=== PATIENT | male | born 1995 | race Caucasian/White ===

== ENCOUNTER 2017-01-24 16:05 | Emergency (ER) | payer SELFPAY ==
[~2017-01-24] VITALS: Ht 177.8 cm; Wt 66.0 kg
[~2017-01-24 16:05] MED LIST: BACT800T5 PO; CEPH500T PO
[2017-01-24 16:07] VITALS: BP 130/63; PULSE 59; RESP 16; TEMP 97.4; O2SAT 97
--- NOTE | 2017-01-24 16:22 | PD ---
HPI Chief Complaint: Cold / Flu Symptoms Time Seen by Provider: 16:19 Travel History International Travel<30 days: No Contact w/Intl Traveler<30days: No Traveled to known affect area: No History of Present Illness HPI 21-year-old male that presents to the ED for evaluation of possible flu. Per patient his been in contact with someone who had the flu on Thursday. Per patient he himself got the flu shot this year old history of having cough and runny nose today and he wanted to make sure he did not get the flu as per patient his mother has significant illness in she herself is concerned that he might have the flu and wants to make sure. Patient denies any body aches. No fevers chills or sweats. He isn't taking anything for this. Denies any recent travel. No chest pain or shortness of breath. No abdominal pain. No nausea or vomiting. No other symptoms other than congestion and runny nose. PFSH Past Medical History Diminished Hearing: No Immunizations Current: Yes (ALL UTD ) Social History Alcohol Use: Yes Tobacco Use: No Substance Use: Yes (MARIJUANA) Allergies-Medications (Allergen,Severity, Reaction): Coded Allergies: No Known Allergies (Verified , 05/03/16) Reported Meds & Prescriptions Reported Meds & Active Scripts Active Review of Systems Except as stated in HPI: all other systems reviewed are Neg Physical Exam Narrative GENERAL: Well-nourished, well-developed patient in no apparent distress. SKIN: Warm and dry. HEAD: Atraumatic. Normocephalic. EYES: Pupils equal and round reactive to light and accommodation. No scleral icterus. No injection or drainage. ENT: No nasal bleeding or discharge. Mucous membranes pink and moist. TMs are clear with no sign of infection or perforation. No mastoid tenderness. Ear canals are intact bilaterally. No lymphadenopathy. Nostril mucosa is red and moist with clear mucus noted. No sinus tenderness to palpation noted. Tonsils are not enlarged or swollen. No ulvua Deviation. Tongue is midline. NECK: Trachea midline. No JVD. No meningeal signs noted CARDIOVASCULAR: Regular rate and rhythm. RESPIRATORY: No accessory muscle use. Clear to auscultation. Breath sounds equal bilaterally. GASTROINTESTINAL: Abdomen soft, non-tender, nondistended. Hepatic and splenic margins not palpable. MUSCULOSKELETAL: Extremities without clubbing, cyanosis, or edema. No obvious deformities. NEUROLOGICAL: Awake and alert. No obvious cranial nerve deficits. Motor grossly within normal limits. Five out of 5 muscle strength in the arms and legs. Normal speech. PSYCHIATRIC: Appropriate mood and affect; insight and judgment normal. Data Data Last Documented VS Vital Signs Date Time Temp Pulse Resp B/P Pulse Ox O2 Delivery O2 Flow Rate FiO2 01/24/17 16:07 97.4 59 16 130/63 97 Orders Influenzae A/B Antigen (01/24/17 16:10) MDM Medical Decision Making Medical Screen Exam Complete: Yes Emergency Medical Condition: Yes Medical Record Reviewed: Yes Interpretation(s) influenza negative Differential Diagnosis Upper respiratory infection versus sinusitis versus influenza versus viral illness Narrative Course 21-year-old male that presents to the ED for evaluation of cold-like symptoms. Patient was properly examined and was found to have signs and symptoms consistent what appears to be likely viral illness. Patient did have recent interaction with positive flu individual. This time and do recommend checking for the flu as patient will likely or benefit more from Tamiflu if he is positive. At this time patient is in agreement with plan. Flu test showed negative. I recommend taking OTC meds as needed. Follow with PCP. See ED worsening symptoms. Diagnosis Primary Impression: URI (upper respiratory infection) Qualified Code: J06.9 - Viral upper respiratory tract infection Patient Instructions: General Instructions Additional Instructions: Motrin and Tylenol for pain and fever. You can use [id number] antihistamine as well as well as Mucinex as needed for runny nose and congestion. Cough drops for cough as needed. Drink plenty of fluids. Follow-up with PCP. See ED for worsening symptoms. Med/Other Pt SpecificInfo: No Meds Exist/No RX given Disposition: 01 DISCHARGE HOME Condition: Stable Harjinder Paz Jan 24, 2017 16:22
== END 2017-01-24 16:41 | disposition home or self-care (01) ==
LOC: PHEFT 16:05
DX: J06.9 Acute upper respiratory infection, unspecified (principal)
CPT/HCPCS: 87804; 99283

== ENCOUNTER 2017-06-09 10:19 | Emergency (ER) | payer SELFPAY ==
[~2017-06-09] VITALS: Ht 172.7 cm; Wt 72.5 kg
[2017-06-09 10:20] VITALS: BP 126/67; PULSE 71; RESP 16; TEMP 98.5; O2SAT 99
--- NOTE | 2017-06-09 10:36 | PD ---
HPI Chief Complaint: Cold / Flu Symptoms Time Seen by Provider: 10:36 Travel History International Travel<30 days: No Contact w/Intl Traveler<30days: No Traveled to known affect area: No History of Present Illness HPI 22-year-old male presents to the emergency Department with complaint of sore throat, body aches, nausea that he woke up with this morning. Denies fever, vomiting. Denies lump in throat, difficulty swallowing, and usual drooling. Denies nasal congestion, ear pain. He lives with his mom who has autoimmune disease so they are very cautious and concerned about bringing him illnesses. He has not taken any medications or tried any treatments to alleviate his symptoms. Symptoms are mild in severity. Has no other medical complaints. No known allergies. No other modifying factors or associated signs and symptoms. PFSH Past Medical History Diminished Hearing: No Immunizations Current: Yes (ALL UTD ) Social History Alcohol Use: Yes Tobacco Use: No Substance Use: Yes (MARIJUANA) Allergies-Medications (Allergen,Severity, Reaction): Coded Allergies: No Known Allergies (Verified , 06/09/17) Reported Meds & Prescriptions Reported Meds & Active Scripts Active No Active Prescriptions or Reported Medications Review of Systems Except as stated in HPI: all other systems reviewed are Neg Physical Exam Narrative GENERAL: Well-nourished, well-developed male patient, in no acute distress; afebrile, nontoxic-appearing SKIN: Warm and dry. No rash. HEAD: Atraumatic. Normocephalic. EYES: Pupils equal and round. No scleral icterus. No injection or drainage. ENT: Mucosa pink and moist. Oropharynx with erythema; without edema or exudates. No uvular edema. No uvular, palatal, or tonsillar deviation. Airway patent. EARS: Bilateral pinnae and external canals appear within normal limits. Bilateral tympanic membranes without erythema, dullness or perforation. NECK: Trachea midline. No lymphadenopathy. CARDIOVASCULAR: Regular rate and rhythm. No murmur appreciated. RESPIRATORY: No accessory muscle use. Clear to auscultation. Breath sounds equal bilaterally. No retractions or tachypnea. GASTROINTESTINAL: Abdomen soft, non-tender, nondistended. Hepatic and splenic margins not palpable. Bowel sounds are active 4 quadrants. MUSCULOSKELETAL: No obvious deformities. No clubbing. No cyanosis. No edema. NEUROLOGICAL: Awake and alert. Oriented 3. No obvious cranial nerve deficits. Motor grossly within normal limits. Normal speech. Moves all extremities. 5/5 strength to all extremities. PSYCHIATRIC: Appropriate mood and affect; insight and judgment normal. Data Data Last Documented VS Vital Signs Date Time Temp Pulse Resp B/P (MAP) Pulse Ox O2 Delivery O2 Flow Rate FiO2 06/09/17 11:33 06/09/17 10:20 98.5 71 16 99 Room Air Orders Orders Group A Rapid Strep Screen (06/09/17 10:36) Ibuprofen (Motrin) (06/09/17 10:45) Influenzae A/B Antigen (06/09/17 10:36) Strep Culture (Group A) (06/09/17 10:45) MDM Medical Decision Making Medical Screen Exam Complete: Yes Emergency Medical Condition: Yes Medical Record Reviewed: Yes Differential Diagnosis Viral illness, influenza, pharyngitis Narrative Course 22-year-old male with cold/flu symptoms that onset today. He lives with his mom who has autoimmune disorder and they are very cautious when somebody has onset of symptoms. He is afebrile and nontoxic-appearing. He denies fever, vomiting. Ibuprofen administered in the ER. Rapid strep and influenza ordered. 1127: Influenza and rapid strep negative. Discussed viral illness and symptomatic management. Instructed patient to follow up with primary care provider. Patient verbalizes understanding and agreement with treatment plan. Patient is medically cleared and stable for discharge. Discussed reasons to return to the emergency department. Patient agrees with treatment plan. The patients vital signs are stable and the patient is stable for outpatient follow- up and treatment. Patient discharged home, stable and in no acute distress. Diagnosis Primary Impression: Viral illness Referrals: [facility] Primary Care Physician Patient Instructions: Cold Symptoms (ED), General Instructions Departure Forms: School Release, Return to School Date: Jun 10, 2017 Tests/Procedures, Work Release Enter return to work date: Jun 10, 2017 Additional Instructions: Ibuprofen or Tylenol as directed and as needed for symptom management [id number] cold/flu medications as directed and as needed for symptom management Get plenty of sleep/rest Drink plenty of fluids to prevent dehydration; such as Gatorade, Powerade, Pedialyte [place] diet to encourage nutrition such as crackers, fruit, applesauce, toast, soup etc. Use an air humidifier/turn off ceiling fans Follow-up with your primary care provider Return immediately to the emergency department with worsening of symptoms Med/Other Pt SpecificInfo: No Meds Exist/No RX given Scripts No Active Prescriptions or Reported Meds Disposition: 01 DISCHARGE HOME Condition: Stable Tatiana Pollard Jun 09, 2017 10:36
[2017-06-09] MEDS ORDERED: IBUPROFEN 800 MG TAB PO ONE (10:45)
== END 2017-06-09 11:40 | disposition home or self-care (01) ==
LOC: NEPK 10:19
DX: B34.9 Viral infection, unspecified (principal); F10.10 Alcohol abuse, uncomplicated; F12.10 Cannabis abuse, uncomplicated
CPT/HCPCS: 87081; 87804; 87880; 99283

== ENCOUNTER 2017-08-19 11:17 | Emergency (ER) | payer SELFPAY ==
[~2017-08-19] VITALS: Ht 175.3 cm; Wt 72.0 kg
[2017-08-19 11:25] VITALS: BP 128/65; PULSE 72; RESP 16; TEMP 97.6; O2SAT 97
[2017-08-19] MEDS ORDERED: BACT800T5 PO (11:44)
--- NOTE | 2017-08-19 11:45 | PD ---
HPI Chief Complaint: Skin Problem Time Seen by Provider: 11:40 Travel History International Travel<30 days: No Contact w/Intl Traveler<30days: No Traveled to known affect area: No History of Present Illness HPI 22-year-old male complains of rash to the buttock and lower extremity. Patient states the rash started a week ago. Patient states that the rash occasionally associated with pain. Patient has been putting topical steroid on the rash with mild relief. Patient states that he sweats a lot. Patient also has been active outdoor. Patient denies any fever chills. Patient states that he has history MRSA infection in the past. PFSH Past Medical History Diminished Hearing: No Immunizations Current: Yes (ALL UTD ) Social History Alcohol Use: Yes Tobacco Use: No Substance Use: Yes (MARIJUANA) Allergies-Medications (Allergen,Severity, Reaction): Coded Allergies: No Known Allergies (Verified Adverse Reaction, Unknown, 08/19/17) Reported Meds & Prescriptions Reported Meds & Active Scripts Active No Active Prescriptions or Reported Medications Review of Systems General / Constitutional: No: Fever Eyes: No: Visual changes HENT: No: Headaches Cardiovascular: No: Chest Pain or Discomfort Respiratory: No: Shortness of Breath Gastrointestinal: No: Abdominal Pain Genitourinary: No: Dysuria Musculoskeletal: No: Pain Skin: Positive Rash Neurologic: No: Weakness Psychiatric: No: Depression Endocrine: No: Polydipsia Hematologic/Lymphatic: No: Easy Bruising Physical Exam Narrative GENERAL: Well-nourished, well-developed patient. SKIN: Focused skin assessment warm/dry. Patient has mild fine papular rash on the buttock area and the legs. No tenderness on palpation. No pus noted. HEAD: Normocephalic. EYES: No scleral icterus. No injection or drainage. NECK: Supple, trachea midline. No JVD or lymphadenopathy. CARDIOVASCULAR: Regular rate and rhythm without murmurs, gallops, or rubs. RESPIRATORY: Breath sounds equal bilaterally. No accessory muscle use. GASTROINTESTINAL: Abdomen soft, non-tender, nondistended. MUSCULOSKELETAL: No cyanosis, or edema. BACK: Nontender without obvious deformity. No CVA tenderness. Data Data Last Documented VS Vital Signs Date Time Temp Pulse Resp B/P (MAP) Pulse Ox O2 Delivery O2 Flow Rate FiO2 08/19/17 11:25 97.6 72 16 128/65 (86) 97 MDM Medical Decision Making Medical Screen Exam Complete: Yes Emergency Medical Condition: Yes Differential Diagnosis Differential diagnosis including heat rash, contact dermatitis, folliculitis. Narrative Course 22-year-old male with rash on the buttock and lower extremity. History of excessive sweating. Diagnosis Primary Impression: Heat rash Patient Instructions: General Instructions Additional Instructions: Take Bactrim DS as directed if the rash becomes infected. Follow-up with local physician. Advised cotton clothes and loose fitting clothes Med/Other Pt SpecificInfo: Prescription(s) given Scripts Sulfamethoxazole-Trimethoprim (Bactrim DS) 800-160 Mg Tab 1 TAB PO BID for Infection, #20 TAB 0 Refills Prov: Amando Ledezma MD 08/19/17 Disposition: 01 DISCHARGE HOME Condition: Stable Amando Ledezma MD Aug 19, 2017 11:44
== END 2017-08-19 12:04 | disposition home or self-care (01) ==
LOC: PHEFT 11:17
DX: L74.0 Miliaria rubra (principal)
CPT/HCPCS: 99283

== ENCOUNTER 2018-01-19 15:28 | Emergency (ER) | payer SELFPAY ==
[~2018-01-19 15:28] MED LIST changes: -CEPH500T PO
[2018-01-19 15:40] VITALS: BP 132/60; PULSE 73; RESP 18; TEMP 97.7; O2SAT 98
[2018-01-19] MEDS ORDERED: TETANUS/DIPHTHERIA TOXOID ADULT 0.5 ML VIAL IM ONE (16:00)
--- NOTE | 2018-01-19 16:23 | RADRPT ---
EXAM DATE/TIME: 01/19/2018 15:59 [facility] COMPARISON: ANKLE LEFT COMPLETE ([id number]), April 04, 2016, 11:55. INDICATIONS : Left foot pain. Patient stepped on monica nail. Evaluate for foregin body. MEDICAL HISTORY : None. SURGICAL HISTORY : None. ENCOUNTER: Initial ACUITY: 1 day PAIN SCORE: 6/10 LOCATION: Left foot. FINDINGS: The examination demonstrates a small ossific density which appears to be a small avulsion off the bas e of the second proximal phalanx. The puncture site is marked on the plantar surface of the foot. I d o not see a foreign body beneath this. The remainder the osseous structures are intact. CONCLUSION: 1. No definite metallic foreign body identified. Jr Villareal MD on January 19, 2018 at 16:19 Board Certified Radiologist. This report was verified electronically.
--- NOTE | 2018-01-19 16:27 | PD ---
HPI Chief Complaint: Skin Problem Time Seen by Provider: 15:53 Travel History International Travel<30 days: No Contact w/Intl Traveler<30days: No Traveled to known affect area: No History of Present Illness HPI 22-year-old male presents to the ED for evaluation of puncture of the left foot. Patient was wearing his shoes, stepped on a monica nail. He is unsure that the penetration. This happened just before arrival. He denies numbness, tingling, weakness, limitations range of motion of the extremity. He has been ambulatory since then. States that he is currently taking antibiotics for "a MRSA infection." He has been taking these for 3 days. He is unsure the date of his last tetanus immunization. No known allergies. [facility] Past Medical History Diminished Hearing: No Immunizations Current: Yes (ALL UTD ) ?: Not Social History Alcohol Use: Yes Tobacco Use: No Substance Use: Yes (MARIJUANA) Allergies-Medications (Allergen,Severity, Reaction): Coded Allergies: No Known Allergies (Verified Adverse Reaction, Unknown, 01/19/18) Reported Meds & Prescriptions Reported Meds & Active Scripts Active Cipro (Ciprofloxacin HCl) 500 Mg Tab 500 Mg PO TID 7 Days Bactroban Topical (Mupirocin) 22 Gm Cream 1 Applic TOPICAL DAILY 5 Days Review of Systems Except as stated in HPI: all other systems reviewed are Neg Physical Exam Narrative GENERAL: Well-nourished, well-developed white male in no acute distress. SKIN: Focused skin assessment warm/dry. Small puncture wound of the plantar surface, distal third, medial aspect of the left forefoot. No visible foreign body. No active bleeding. HEAD: Normocephalic. EYES: No scleral icterus. No injection or drainage. NECK: Supple, trachea midline. No JVD or lymphadenopathy. CARDIOVASCULAR: Regular rate and rhythm without murmurs, gallops, or rubs. RESPIRATORY: Breath sounds equal bilaterally. No accessory muscle use. GASTROINTESTINAL: Abdomen soft, non-tender, nondistended. MUSCULOSKELETAL: No cyanosis, or edema. FOCUSED LEFT LOWER EXTREMITY EXAM: 2+ DP pulse. Patient retains full, active, painless R OM of the extremity. Neurovascularly intact. BACK: Nontender without obvious deformity. No CVA tenderness. Data Data Last Documented VS Vital Signs Date Time Temp Pulse Resp B/P (MAP) Pulse Ox O2 Delivery O2 Flow Rate FiO2 4/3/18 15:40 97.7 73 18 132/60 (84) 98 Orders Orders Tetanus/Diphtheria Tox Adult (Tetanus/Di (01/19/18 16:00) Foot, Limited (2vws) (01/19/18 15:53) Ed Discharge Order (01/19/18 16:28) MDM Medical Decision Making Medical Screen Exam Complete: Yes Emergency Medical Condition: Yes Differential Diagnosis Puncture wound versus foreign body versus need for tetanus immunization versus other Narrative Course 22-year-old male presents to the ED for evaluation of puncture of the left foot. Patient was wearing his shoes, stepped on a monica nail. He has been ambulatory since then. States that he is currently taking antibiotics for "a MRSA infection." He has been taking these for 3 days. He is unsure the date of his last tetanus immunization. Vitals reviewed. On exam there is a small puncture rufus on the distal third of the plantar aspect of the left foot. X- ray reveals no foreign body. Tetanus immunization was updated. The wound was irrigated and dressed. Patient is provided with Bactroban ointment and Cipro. He is instructed to continue with his other antibiotics, take these until they are all gone, monitor for signs of infection, follow with the primary care provider. He indicated understanding the instructions and is agreeable to care plan. The patient is stable and discharged home. Diagnosis Primary Impression: Puncture wound of left foot Qualified Codes: S91.332A - Puncture wound without foreign body, left foot, initial encounter Referrals: Primary Care Physician Patient Instructions: General Instructions, Puncture Wound (ED) Additional Instructions: Rest, hydrate. Keep the wound clean, dry and covered. Wash the wound at least once or twice a day, allow it to dry very thoroughly. Apply a thin coat of Bactroban ointment once a day. Begin antibiotics today and take them until every pill is gone. Continue with the other antibiotics that you are taking. Monitor for signs of infection as discussed. Return to the ED for worsening symptoms or any urgent or emergent medical condition. Med/Other Pt SpecificInfo: Prescription(s) given Scripts Ciprofloxacin (Cipro) 500 Mg Tab 500 MG PO TID for Infection for 7 Days, TAB 0 Refills Prov: Irene Woo MD 01/19/18 Mupirocin Topical (Bactroban Topical) 22 Gm Cream 1 APPLIC TOPICAL DAILY for Mgmt Bacterial Infection for 5 Days, #1 TUBE 0 Refills Prov: Irene Woo MD 01/19/18 Disposition: 01 DISCHARGE HOME Condition: Stable Kayla Wilkes Jan 19, 2018 16:27
[2018-01-19] MEDS ORDERED: MUPI2%T TOPICAL (16:28)
[2018-01-19] MEDS ORDERED: CIPR-9 PO (16:29)
== END 2018-01-19 16:44 | disposition home or self-care (01) ==
LOC: PHEFT 15:28
DX: S91.332A Puncture wound without foreign body, left foot, initial encounter (principal); W22.8XXA Striking against or struck by other objects, initial encounter; Z23 Encounter for immunization
CPT/HCPCS: 73620; 90471; 90714